=== PATIENT | female | born 1995 | race Caucasian/White ===

== ENCOUNTER 2021-02-28 00:36 | Day surgery (SDC) | payer OTHER, SELFPAY ==
[2021-02-27 12:21] VITALS: BMI 24.2
[2021-02-28] VITALS (8 sets, daily range): BP systolic 103–118; BP diastolic 44–80; PULSE 45–73; RESP 12–20; TEMP 36.6; O2SAT 97–100
--- NOTE | 2021-02-28 11:16 | SUR.OPER ---
Pre Op Pregnacy test ran - Negative results reported to Dr. Bashir
--- NOTE | 2021-02-28 11:56 | WPDMODSED ---
Moderate Sedation Note-Pt Data Patient Data Diagnosis: Abnormal echo, possible bicuspid aortic valve. Mitral valve prolapse Present Complaint: As above Procedure to be performed/Plan: 1. Moderate sedation 2. Multiplanar transesophageal echocardiography with color-flow pulse-wave Doppler. Possible agitated saline study Home Medications Medication Instructions Recorded Confirmed Type cetirizine [Zyrtec] 10 mg PO DAILY 02/27/21 02/27/21 History levonorgestrel-ethinyl estrad 1 tablet PO DAILY 02/27/21 02/27/21 History [Lessina] Current Medications: Active Medications Sodium Chloride (Normal Saline Iv) 1,000 mls @ 30 mls/hr IV CONT .Q24H [facility] Sedation/Anesthesia: No previous sedation/anesthesia problems (including family history). [facility] Family History Family History Grandparent Family history of thyroid disease Hypertension Family history of cardiovascular disease Family history of arthritis Family history of lung cancer Family history of lymphoma Family history of malignant neoplasm of breast in first degree relative Family history of Hodgkin's lymphoma Mother Family history of elevated blood lipids Social History Social History Smoking status: Never smoker Alcohol intake: never Substance use: never Living arrangements: with family Spiritual care concerns: No Mod Sed Physical Exam Physical Exam Pre Procedural Exam: Normal: Appearance, Eyes, Ears, Nose, Neck, Throat, Airway, Lungs, Heart Size, Heart Rate, Heart Rhythm, Neuro Exam, Extremities and Skin Hours since solid foods: 12 Hours since liquid intake: 12 Mallampati Classification: class II Internal Medicine - PN: Obj Da Vital Signs Vital Signs: Vital Signs - 24 hr 02/28/21 11:06 Temperature 36.6 C Pulse Rate 56 L Respiratory Rate 16 Blood Pressure 103/55 L Pulse Oximetry 100 Meds/Results Medications: Active Medications Generic Name Dose Route Start Last Admin Trade Name Freq PRN Reason Stop Dose Admin Sodium Chloride 1,000 mls @ 30 mls/hr 02/28/21 10:30 Normal Saline Iv IV CONT .Q24H [place] ASA Classification/Sedation ASA Classification/Sedation ASA Class: I Emergent: No Risks: Risks, benefits and alternatives explained and patient/family accepted plan for sedation. Patient re-evaluated immediately prior to sedation.
--- NOTE | 2021-02-28 12:13 | WPDTEECHO ---
[facility] TransEsophageal Echocardiogram Date of procedure: 02/28/21 Procedure Type: 1. Moderate sedation 2. Multiplanar transesophageal echocardiography with pulse wave and color-flow Doppler Diagnosis: Abnormal echocardiogram, possible bicuspid aortic valve, mitral valve prolapse Indications: Abnormal echocardiogram, possible bicuspid aortic valve, mitral valve prolapse Image Quality: Good Findings: After discussing the risks, benefits alternatives of procedure patient agreeable via verbal and written informed consent. Risks discussed included esophageal rupture perforation, adverse reaction to anesthesia, , sore throat, bleeding, pain, infection. After establishing continuous telemetry monitoring, pulse oxygenation and serial blood pressure assessments, a time-out was taken and procedure was initiated Procedure start time 12:05 p.m. Procedure stop time 12:10 p.m. Medications given: 10 mg of viscous lidocaine gargle and swallow. Hurricaine spray hypopharynx x2. Total 3 mg of Versed and 50 mcg fentanyl given in divided dosages. Medications were administered patient was monitored by Isabel Hopkins RN Complications: None Blood loss: None Findings: Normal left ventricular size and function with ejection fraction estimated 60-65%. Normal right ventricular size and function. Normal left and right atrial sizes. Atrial septum is intact without color flow evidence of shunting. Left atrial appendage is normal without mass or thrombus with velocities of greater than 75 centimeters/second. There is mild anterior leaflet prolapse of the mitral valve with mild mitral regurgitation. Tricuspid valve is normal without significant tricuspid regurgitation. The aortic valve is trileaflet and normal with trivial aortic insufficiency. The pulmonic valve is normal without significant pulmonic insufficiency. The aortic root is normal in size for BSA. No pericardial effusion. Conclusions: 1. Normal left ventricular size and function 2. Mild mitral valve prolapse of the anterior mitral leaflet with mild mitral regurgitation 3. Tricuspid aortic valve with trivial aortic insufficiency. 4. Moderate sedation
== END 2021-02-28 13:30 | disposition home or self-care (01) ==
PROVIDERS: Visit Provider Internal Medicine Cardiovascular Disease
PROC: (CPT 93312; principal; 2021-02-28 11:30)
DX: I34.1 Nonrheumatic mitral (valve) prolapse (principal); I34.0 Nonrheumatic mitral (valve) insufficiency
CPT/HCPCS: 93312; 93320; 93325; J2250; J2405; J3010; J7030

== ENCOUNTER 2024-03-20 10:39 | Outpatient (CLI) | payer OTHER, SELFPAY ==
--- NOTE | ~2024-03-20 | MR_ITS ---
EXAMINATION: MR cervical spine wo con DATE: 03/20/2024 11:17 INDICATION: Neck pain. TECHNIQUE: Magnetic resonance imaging (MRI) of the cervical spine was performed without intravenous c ontrast. COMPARISON: None FINDINGS: Alignment is normal. Vertebral body heights and intervertebral disc heights are normal. The spinal cord signal intensity is normal. The following disc levels are specifically discussed: C2-C3: The disc does not extend beyond the endplate margin. There is no uncovertebral joint osteoarth ritis. There is no facet joint osteoarthritis. There is no neural foraminal stenosis. There is no shelly tral canal stenosis. C3-C4: The disc does not extend beyond the endplate margin. There is no uncovertebral joint osteoarth ritis. There is mild left facet joint osteoarthritis. There is no neural foraminal stenosis. There is no central canal stenosis. C4-C5: There is a central protrusion. There is no uncovertebral joint osteoarthritis. There is no fac et joint osteoarthritis. There is no neural foraminal stenosis. There is mild central canal stenosis. C5-C6: There is a central protrusion. There is mild bilateral uncovertebral joint osteoarthritis. The re is no facet joint osteoarthritis. There is no neural foraminal stenosis. There is mild central can al stenosis. C6-C7: The disc does not extend beyond the endplate margin. There is mild left uncovertebral joint os teoarthritis. There is no facet joint osteoarthritis. There is mild left neural foraminal stenosis. T here is no central canal stenosis. C7-T1: The disc does not extend beyond the endplate margin. There is no uncovertebral joint osteoarth ritis. There is no facet joint osteoarthritis. There is no neural foraminal stenosis. There is no shelly tral canal stenosis. IMPRESSION: 1. Mild cervical spondylosis. Reviewed, dictated and finalized at location A. F [employer]
== END 2024-03-20 10:40 | disposition home or self-care (01) ==
PROVIDERS: PCP Family Medicine Sports Medicine; Visit Provider Family Medicine Sports Medicine
DX: M47.892 Other spondylosis, cervical region (principal)
CPT/HCPCS: 72141